=== PATIENT | female | born 1970 | race Caucasian/White ===

== ENCOUNTER → 2024-08-25 | Outpatient (REF) | payer BC ==
[~2024-08-25] MED LIST: AMBEREN PO; IRON325 M1 PO; TUMERIC PO; VITAMIN B121000 MCG PO; VITAMIN C500 MG PO
== END ==
LOC: US 10:54
PROVIDERS: ATTEND Specialist
DX: N92.6 Irregular menstruation, unspecified (principal); R10.32 Left lower quadrant pain; D25.9 Leiomyoma of uterus, unspecified; M85.08 Fibrous dysplasia (monostotic), other site
CPT/HCPCS: 76830; 76856

== ENCOUNTER → 2024-08-28 | Day surgery (SDC) | payer BC ==
[~2024-08-28] MED LIST changes: +ACETAMINOPHEN 1000 MG/100 ML 100 ML IV ONE; +CEFTRIAXONE 1 GM VIAL ONE; +DEXAMETHASONE SOD PHOS INJ 4 MG/ML SDV ONE; +DEXMEDETOMIDINE HCL 2 ML ONE; +EPHEDRINE SULFATE INJ 50 MG/ML VIAL ONE; +FAMOTIDINE 20 MG/2 ML VIAL IV ONE; +FENTANYL CITRATE/PF 100MCG/2 ML INJ ONE; +KETOROLAC TROMETHAMINE 30 MG/ML VIAL ONE; +LIDOCAINE HCL 2% LOCAL INJ 5 ML SDV VIAL INJ ONE; +MIDAZOLAM HCL 2 MG/2 ML VIAL ONE; +ONDANSETRON HCL INJ 2MG/ML 2ML 2 MG/ML VIAL ONE; +PROPOFOL IV EMULSION 10 MG/ML 20 ML VIAL ONE; +SEVOFLURANE INHAL SOLN 250 ML PEN BTL ONE; +SODIUM CHLORIDE 0.9% 100 ML ONE
[2024-08-28] MEDS: LACTATED RINGER'S 1,000 ML ONE (12:20)
[2024-08-28 14:55] VITALS: TEMP 98.2
[2024-08-28] MEDS: KETOROLAC TROMETHAMINE 30 MG/ML VIAL IV ONE (15:11)
[2024-08-28 15:45] VITALS: BP 156/94; PULSE 80; RESP 16; O2SAT 99
== END | disposition home or self-care (01) ==
LOC: OR 11:48
PROVIDERS: ATTEND Specialist
DX: D50.0 Iron deficiency anemia secondary to blood loss (chronic) (principal); D25.9 Leiomyoma of uterus, unspecified; N92.0 Excessive and frequent menstruation with regular cycle; N85.00 Endometrial hyperplasia, unspecified; E66.9 Obesity, unspecified; Z88.2 Allergy status to sulfonamides; Z01.810 Encounter for preprocedural cardiovascular examination
CPT/HCPCS: 58563; 81025; 88305; 88342; 93005; J0131; J0696; J1100; J1885; J2003; J2250; J2405; J2704; J3010; J7050; J7121